=== PATIENT | male | born 1990 | race African-American/Black ===

== ENCOUNTER 2018-05-05 18:51 | Emergency (ER) | payer OTHER ==
[2018-05-05 20:10] LABS: APPEARANCE, URINE HAZY (CLEAR); BACTERIA, URINE AUTO NEGATIVE (NEGATIVE); BILIRUBIN, URINE AUTO NEGATIVE (NEGATIVE); BLOOD, URINE BLOOD NEGATIVE (NEGATIVE); COLOR, URINE YELLOW (YELLOW); GLUCOSE, URINE (UA) AUTO NEGATIVE (NEGATIVE); KETONE, URINE AUTO TRACE mg/dL (NEGATIVE); LEUKOCYTE ESTERASE, URINE AUTO NEGATIVE (NEGATIVE); MUCUS, URINE SMALL (NEGATIVE); NITRITE, URINE AUTO NEGATIVE (NEGATIVE); PROTEIN, URINE AUTO NEGATIVE (NEGATIVE); RBC, URINE AUTO 3 /HPF (0-3); SPECIFIC GRAVITY URINE AUTO 1.031 (1.002-1.035); SQUAMOUS EPITHELIAL CELL UR AU 0 /HPF (0-6); WBC, URINE AUTO 0 /HPF (0-3)
[2018-05-05 21:18] LABS: CHLAMYDIA DNA AMPLIFICATION NEGATIVE (NEGATIVE); GC DNA AMPLIFICATION NEGATIVE (NEGATIVE)
== END 2018-05-05 21:59 | disposition home or self-care (01) ==
LOC: M ED 18:51
DX: N48.1 Balanitis (principal); Z72.0 Tobacco use
CPT/HCPCS: 81001

== ENCOUNTER 2018-05-06 11:41 | Emergency (ER) | payer OTHER | END 2018-05-06 12:51 | disposition left against medical advice (07) | LOC: M ED 11:41 | DX: Z53.21 Procedure and treatment not carried out due to patient leaving prior to being seen by health care provider (principal) ==

== ENCOUNTER 2018-05-06 19:15 | Emergency (ER) | payer OTHER | END 2018-05-06 21:57 | disposition home or self-care (01) | LOC: M ED 19:15 | DX: N48.1 Balanitis (principal) | CPT/HCPCS: 99282 ==

== ENCOUNTER 2020-04-24 13:28 | Emergency (ER) | payer OTHER ==
[~2020-04-24] VITALS: Ht 188 cm; Wt 107.6 kg
[~2020-04-24 13:28] MED LIST: CLOT1CRE71 TOP
[2020-04-24] MEDS ORDERED: cefTRIAXone SOD 250MG VIAL (J0696 PER 250MG) IM ONE (15:15)
[2020-04-24] MEDS ORDERED: AZITHROMYCIN 250MG TABLET PO ONE (15:15)
[2020-04-24] MEDS ORDERED: LIDOCAINE 1% SDV 5ML VIAL DILUENT ONE (15:15)
[2020-04-24 15:29] VITALS: BP 137/85
[2020-04-24 15:56] LABS: CHLAMYDIA DNA AMPLIFICATION NEGATIVE (NEGATIVE); GC DNA AMPLIFICATION NEGATIVE (NEGATIVE)
[2020-04-26 10:47] LABS: HEPATITIS A ANTIBODY IGM NEGATIVE (NEGATIVE); HEPATITIS B CORE ANTIBODY IGM NEGATIVE (NEGATIVE); HEPATITIS B SURFACE ANTIGEN NEGATIVE (NEGATIVE); HEPATITIS C VIRUS ABY INDEX 0.1 INDEX (<0.8); HIV 1&2 SCREEN CENTAUR NEGATIVE (NEGATIVE)
[2020-04-29 17:10] LABS: HSV-1 DNA Negative (Negative); HSV-2 DNA Negative (Negative)
== END 2020-04-24 15:44 | disposition home or self-care (01) ==
LOC: M ED 13:28
DX: Z11.3 Encounter for screening for infections with a predominantly sexual mode of transmission (principal); Z20.2 Contact with and (suspected) exposure to infections with a predominantly sexual mode of transmission
CPT/HCPCS: 12002; 86705; 86709; 86780; 86803; 87340; 87389; 87491; 87529; 87591; 96372; 99283; J0696